=== PATIENT | female | born 1970 ===

== ENCOUNTER 2021-02-05 05:40 | Day surgery (SDC) | payer OTHER ==
[2021-02-05] MEDS ORDERED: CARAFATE1 GM/10 ML PO (08:12)
[2021-02-05] MEDS ORDERED: NEXIUM 24HR20 MG PO (08:12)
== END 2021-02-05 09:30 | disposition home or self-care (01) ==
LOC: AMB-ENDOS 05:40
PROVIDERS: ATTEND Surgery
DX: K29.50 Unspecified chronic gastritis without bleeding (principal); Z20.822 Contact with and (suspected) exposure to COVID-19